=== PATIENT | female | born 1975 | race Caucasian/White ===

== ENCOUNTER → 2018-09-27 16:56 | Outpatient (CLI) | payer OTHER, SELFPAY ==
[2017-06-08 11:15] VITALS: BMI 31.1
[2018-09-27 17:47] LABS: Free T3 2.9 pg/mL (2.18-3.98); T4 Free Direct 0.88 ng/dL (0.76-1.46); Thyroid Stim Hormone (TSH) 3.23 uIU/mL (0.358-3.74)
[2018-10-01 11:31] LABS: Thyroid Peroxidase AB 264 IU/mL (0-34)
--- OUTSIDE RECORDS SUMMARY | 2018-11-13 14:25 | XMS RPT_ITS ---
:1975 Author Organization OHIP Care Team Providers Name Role Phone MD DAVID CHAPMAN Attending Unavailable PHYSICIAN, NONE Primary Care Unavailable CHASTITY KNOX, DR. Toby VICK Attending Unavailable PHYSICIAN, NONE Primary Care Unavailable ES GRANADO MD Consulting Unavailable MESFIN BOCANEGRA., DR. JOYA Luis Consulting Unavailable MD DAVID CHAPMAN Attending Unavailable PHYSICIAN, NONE Primary Care Unavailable GISELE LOGAN DO Admitting Unavailable GISELE LOGAN DO Attending Unavailable SID NEW MD Referring Unavailable GISELE LOGAN DO Primary Care Unavailable SID NEW MD Consulting Unavailable PROVIDER, UNKNOWN Consulting Unavailable PROVIDER, UNKNOWN Consulting Unavailable PROVIDER, UNKNOWN Consulting Unavailable Saritha Munoz Attending Unavailable David Chapman Primary Care Unavailable PROBLEMS PROBLEMS No Problem Records FoundPROCEDURES PROCEDURES No Procedure Records FoundRESULTS RESULTS FREE T3 Collected: 09/27/2018 Status: F Source: [place] 4:58 PM [facility] REPOSITORY TYPE CODE TESTS RESULT OUT OF RANGE REFERENCE UNITS LAB L501.90911 2.18-3.98 pg/mL Normal FREE T3 2.9 Performed By: #### L501.02200, L501.9520, L506.0400 #### [facility] [address] [place], [address] THYROID STIM HORMONE Collected: 09/27/2018 Status: F Source: [place] (TSH) 4:58 PM [facility] REPOSITORY TYPE CODE TESTS RESULT OUT OF RANGE REFERENCE UNITS LAB L501.9520 0.358-3.74 uIU/mL Normal TSH 3.23 Performed By: #### L501.74871, L501.9520, L506.0400 #### [facility] [address] [place], [address] T4 FREE DIRECT Collected: 09/27/2018 Status: F Source: [place] 4:58 PM [facility] REPOSITORY TYPE CODE TESTS RESULT OUT OF RANGE REFERENCE UNITS LAB L506.0400 0.76-1.46 ng/dL Normal T4 FREE 0.88 DIRECT Performed By: #### L501.60401, L501.9520, L506.0400 #### [facility] [address] [facility] [place], [address] THYROID PEROXIDASE AB Collected: 09/27/2018 Status: F Source: [place] 4:58 PM [facility] REPOSITORY TYPE CODE TESTS RESULT OUT OF RANGE REFERENCE UNITS LAB L3300.6900 0-34 IU/mL High TPO AB [phone] Result Comment: Performed at: [facility] [id number] Jde Developer: Demetrio Subramanian PhD, Phone: [phone] Performed By: #### L3300.6900 #### [facility] (refer to report for specific site) refer to report for address and phone number FINAL SURGICAL Observed: 03/01/2018 Status: F Source: [facility] 8:21 AM [facility] REPOSITORY . Pathology Reports Accession: Collected Date/Time: Received Date/Time: Pathologist: [id number] 03/01/2018 08:21 EDT 03/01/2018 10:57 EDT MD NAVA LANDAVERDE Final Surgical Pathology Report DIAGNOSIS: SOFT TISSUE, ABDOMEN, EXCISION: - FIBROADIPOSE TISSUE CONSISTENT WITH HERNIA SAC. CLINICAL INFORMATION: Procedure: INCISIONAL HERNIA REPAIR Preoperative diagnosis: INCISIONAL HERNIA Postoperative diagnosis: INCISIONAL HERNIA SPECIMEN: A HERNIA SAC GROSS DESCRIPTION: Received in formalin labeled hernia sac is a 2 x 1.6 x 1.1 cm aggregate of pink membranous tissue and yellow lobulated fat. Sectioning shows grossly unremarkable cut surfaces. TS -1 Dictated by SABINE THOMAS ([facility]) MICROSCOPIC DESCRIPTION: Slides reviewed. Electronically Signed by Pathology Report verified by [facility] Electronically signed by NAVA LANDAVERDE MD Sign out Date: 03/02/2018 16:27 Performing Lab: [facility], [address] [place] [address] Performed By: #### SPFR #### [place] [address] EMERGENCY REPORT Observed: 02/14/2018 Status: F Source: [facility] 6:41 AM [facility]Y ROOM REPORT NAME ACCOUNT SEX AGE ADMIT DISCHARGE PT MED. RECORD# NUMBER DATE DATE TYPE VIRGEN, [id number] F 43 02/11/18 02/11/18 3 VIRGIE Junior [id number] ROOM: ER DATE OF : 1975 DICTATING PHYSICIAN: Gisele Logan Date seen was February 11, 2018 at 5:45 p.m. HISTORY OF PRESENT ILLNESS: This is a 43-year-old female complaining of rectal pressure. She states she can feel a large ball of stool in the rectum. She has had no bowel movement since 10 p.m. last night. She did have a CAT scan of her abdomen and pelvis 2 weeks ago here, and then had an MRI of her abdomen and pelvis this week, which showed a hemangioma on her liver and a small umbilical hernia. She is scheduled to have the umbilical hernia repaired by Dr. Severino at [facility] in February of this year. She denies any nausea or vomiting. PAST MEDICAL HISTORY: Kidney stones, hemangioma on the liver, small umbilical hernia. PAST SURGICAL HISTORY: Includes a complete hysterectomy. She had a previous orthopedic surgery on her ankle. She has had breast augmentation surgery and lithotripsy surgery twice, eye surgery once. Her complete hysterectomy was done June 01 of this past year. ALLERGIES: No known drug allergies. SOCIAL HISTORY: She is not a smoker. She does admit to occasional alcohol use. She lives at home with her family. REVIEW OF SYSTEMS: Denies any abdominal pain, nausea, vomiting, does admit to constipation. Denies any diarrhea, melena, hematochezia. Denies any chest pain, shortness of breath, cough, sputum, wheezing, headache, numbness, unsteady gait, weakness, neck or back pain, joint pain, skin rash, swelling, hives, hayfever, or swollen glands. Further review of systems is negative. PHYSICAL EXAMINATION: Vital signs: Blood pressure 165/91, pulse 95, respirations 16, temperature 97.9, pulse ox 95% on room air, and weight is 200 pounds. The patient is alert and oriented x3. She presently appears in no acute distress. She is pleasant and cooperative. HEENT: Head appears atraumatic. Pupils are equal and reactive to light. Red reflex intact bilaterally. Extraocular muscles are intact. No conjunctival injection. No scleral icterus or lid edema. Nose: Exhibits no rhinorrhea or epistaxis. Mouth: Mucous membranes are moist. No pharyngeal erythema. Uvula is midline and elevates. Neck is Page 1 of 3 VIRGIE NEW Emergency Room Report supple. Trachea is midline. No JVD or lymphadenopathy. No posterior cervical tenderness. No nuchal rigidity. Lungs: Clear to auscultation in all lung long. No adventitious sounds are noted. No accessory muscle use. CV: Heart rate and rhythm are regular without murmur. Abdomen is soft, obese, and nontender with normoactive bowel sounds x4 quadrants. No guarding or rigidity. No rebound. No palpable abdominal masses. No hepatosplenomegaly. No distension. Back exhibits no midline or paraspinal region tenderness. No increased paraspinal muscle rigidity. Negative Terrell's sign. Rectal examination showed good rectal sphincter tone. There was a large, but soft ball of stool in the rectal vault, but it was just at the very tip of my finger, so I was unable to get my finger around it to disimpact any of that. I did send stool for a Hemoccult, but the stool was brown in color and does not appear to be bloody. No internal or external hemorrhoids noted. No rectal masses. No tenderness. Extremities: No edema or cyanosis. Peripheral pulses are intact. No motor or sensory deficits are noted. Hand manager primary are strong and symmetric. Neurologic examination shows the patient to be alert and oriented x4. No motor or sensory deficits are noted. Normal speech. Skin is warm and dry. No diaphoresis or rash. The patient is pleasant and cooperative with normal affect. EMERGENCY DEPARTMENT COURSE AND TREATMENT: The patient was not anxious to have an enema done here, so I wrote her a prescription for Dulcolax tablets. She can take 1 orally daily, but she can take up to 3 tablets orally daily if needed, dispensed #30, no refill. DIAGNOSIS: Constipation. PLAN/DISPOSITION: I gave her a prescription for MiraLAX 17 grams dissolved in 8 ounces of liquid and drink once daily for 7 days. We will give her a bottle of magnesium citrate here, and dispensed that with her, and she is to drink that when she gets home. She may repeat that tomorrow if she has no stool by then, and if her symptoms become worse return here to the emergency department. Presently, at this point since she has had the CAT scan and the MRI of the abdomen, I did not feel we needed to do that study today. The patient was discharged in a clinically stable condition with instructions to follow up with the [facility] in 3 to 5 days for evaluation. Dictated By: Gisele Logan DO 02/11/18 18:25 JOB #: [id number] Transcribed By: kieran 02/11/18 19:04 Electronically signed by: E-Sign: Dr. Gisele Logan D.O. 02/14/18 06:41 Page 2 of 3 VIRGIE NEW Emergency Room Report OCCULT BLOOD FECES (1 Collected: 02/11/2018 Status: F Source: [facility] SPECIMEN) 6:17 PM [facility] REPOSITORY TYPE CODE TESTS RESULT OUT OF REFERENCE UNITS RANGE LAB OCCULT BLOOD [NEGATIVE STOOL(LOINC) OCCULT NEGATIVE BLOOD STOOL Performed By: #### [id number] #### [facility],[address] [place] [address] MRI LIVER Observed: 02/06/2018 Status: F Source: [facility] 4:15 PM [facility] REPOSITORY ORIGINAL MRI LIVER without and with intravenous contrast CLINICAL STATEMENT: LIVER LESION , abnormal CT COMPARISON: CT 01/18/2018 FINDINGS: The liver is normal in size and morphology. No obvious nodularity of its margins. Corresponding to the abnormality on CT adjacent to the falciform ligament, there is a small area off signal drop-off on the out of phase images that indicates the presence of intracellular lipid. This a bnormality is otherwise inapparent on the T2-weighted images and diffusion-weighted images. The remainder of the liver also shows mild diffuse fatty infiltration. Following intravenous contrast, the lesion of concern continues to show diminished enhancement compared to the remainder of the liver. It is however notable that normal vascular structures traversing th is abnormality which indicates that this is not an actual mass but is simply a vascular perfusion artifact. The remainder of the liver shows no additional abnormality. No other focal lesion. The portal and hepatic veins are patent. No bile duct dilatation. The gallbladder is unremarkable. There is a 2 cm parapelvic cyst in the LEFT kidney. Otherwise the kidneys, pancreas, spleen and adrenal glands are also unremarkable. IMPRESSION: The abnormality seen on the CT examination is from a vascular perfusion artifact. The location and appearance are typical. No follow-up or imaging of this abnormality is needed. There is mild diffuse fa tty infiltration of the remainder of the liver also. Interpreted By: Micheal Huang MD Preliminary Report By: Micheal Huang MD Electronically Signed By: Micheal Huang MD Dictated Date: 02/06/2018 7:47:18 PM Prelim Date: 02/06/2018 7:47:18 PM Sign Date: 02/06/2018 7:54:[address] ABDOMEN/PELVIS Observed: 01/18/2018 Status: F Source: [place] W/CONTRAST 4:00 PM [facility] REPOSITORY ORIGINAL CT ABDOMEN/PELVIS W/CONTRAST CLINICAL STATEMENT: PERIUMBILICAL ABD PAIN COMPARISON: None FINDINGS:The patient was performed following oral and IV contrast material. There are no prior imaging studies available for comparison. Images through the lung bases demonstrate minimal groundglass opacities without pleural or pericardial effusion. There are bilateral breast implants partially demonstrated. The liver demonstrates minimal diminished attenuation consistent with fatty infiltration. Along the anterior aspect best appreciated on image 40 adjacent to the falciform ligament laterally, is an area of hypodensity 2.1 cm in. This does not demonstrate typical volume averaging configuration and may represent a hemangioma. The lesion is incompletely characterized on today's examination and MRI is sugg ested for further evaluation. The gallbladder is present. The pancreas is unremarkable. The spleen demonstrates no acute contributory findings. The adrenal glands and kidneys are grossly unremarkable. T here are parapelvic cystic changes on the left without ureterectasis. No disproportionate bowel dilatation to suggest a focal obstruction is noted. There is no upper abdominal adenopathy. There is a tiny umbilical hernia containing fat with a diastases of 8 mm. In the pelvis, there is no free fluid or adenopathy. Bladder is nondistended. Patient is post hysterectomy. Osseous structures are unremarkable. Minimal Tarlov cyst formation is suspected. IMPRESSION:No acute process. Indeterminate hepatic lesion likely representing a hemangioma. Recommend MRI. This exam was performed according to our departmental dose optimization program, and includes the following measures where applicable: automated exposure control, adjustment of the mAs and/or kVp accord ing to patient size and/or exam, and an iterative reconstruction algorithm. Interpreted By: Pearl Cantrell MD Preliminary Report By: Pearl Cantrell MD Electronically Signed By: Pearl Cantrell MD Dictated Date: 01/18/2018 4:50:05 PM Prelim Date: 01/18/2018 4:50:05 PM Sign Date: 01/18/2018 4:52:54 PM ALLERGIES ALLERGIES DATE TYPE / CODE NAME / CODE REACTION SEVERITY SOURCE Drug nickel/[id number] SKIN SENSITIVITY Unknown [place] [address] Allergy/[id number]( 308(RXNORM) [facility] SNOMED CT) Hospital Repository Miscellaneous No Known Drug Moderate [facility] Allergy/[id number]( Allergies (Severity [facility] SNOMED CT) Modifier) [facility] (Qualifier Repository Value) ENCOUNTERS ENCOUNTERS ADMIT/DISCHARGE ACCOUNT NUMBER ADMITTING ENCOUNTER LOCATION SOURCE CLASS 09/27/2018 [id number] Ambulatory [facility] ding:WOBLAB Repository 03/01/2018/03/01/20 [id number] Ambulatory ABuilding:SD [place] 18 URoom: Health 0107Bed: A [facility] Repository 02/11/2018/02/12/20 [id number] GISELE LOGAN Emergency Buildin[address] [place] [address] 18 DO Room: ERBed: [facility] Repository 02/06/2018/02/07/20 [id number] Ambulatory AULTMANBuild Sejal 18 ing:[facility] Health [facility] Repository 01/18/2018/01/19/20 [id number] Ambulatory SEJAL [place] 18 [facility] g:[facility] Repository PAYERS PAYERS ENCOUNTER GUARANTOR PAYER SUBSCRIBER SOURCE 09/27/2018 Virgie Quach [facility] N Insurance:AULTCAREPoli MillerDOB: [facility] [place] [place] Number: [id number] [id number] [place] [address]Mrc: Date:[id number] [address] [place] [address] () [id number]: 09/27/2018 Secondary NOT GIVENUNK Moore Insurance:SELF PAY [facility] Number: Effective Repository Date:2018-09-27 03/01/2018 VIRGIE Junior Primary [facility]:AULTCARE MILLERDOB: [facility] N P51Fvgkwb Number: [id number] [facility] [id number] N [facility], Date:2018-01-25 [place], [place] [address]Aoe: [id number] [place] [address]Fli: Name:CANARY RAISER Box (DR) [address] [place] [address] ()Tel: [phone]: [phone] 02/11/2018 VIRGIE Junior Primary VIRGIE Wood MILLERDOB: Insurance:AULTCARE MILLERDOB: [facility] N OUTPATIENTPolunitypoint [facility] [id number] [facility] Number: N [id number], [id number] [place], [place] [id number]: Date:Plan Name:A2 Nv [id number] () 02/06/2018 VIRGIE Junior Primary [facility]IRGIE [facility] Insurance:AULTCARE MILLERDOB: [facility] N B52Erlaij Number: [id number] [facility] [id number] N [facility], Date:2018-01-29 - [place], [place] [address]Wal: [id number] [place] [address]Ujg: Name:CANARY RAISER Box () [address] [place] [address] ()Tel: [phone]: [phone] 01/18/2018 VIRGIE Junior [facility] VIRGIE [facility]: [facility] [id number] N [id number] Number: [id number] [facility] [id number] [facility], Date:2018-01-11 - [place], [place] [address]Xjk: [id number] [place] [address]Ojf: Name:CPO Lundy () [address], [place] ()Tel: [phone]: [phone]
== END ==
PROVIDERS: Family Provider Family Medicine; PCP Family Medicine; Visit Provider Obstetrics & Gynecology
DX: E06.3 Autoimmune thyroiditis (principal)
CPT/HCPCS: 36415; 84439; 84443; 84481; 86376